=== PATIENT | female | born 1960 | race African-American/Black ===

== ENCOUNTER 2016-09-15 17:47 | Inpatient (IN) | payer OTHER ==
[~2016-09-15] VITALS: Ht 157.5 cm; Wt 85.7 kg
[~2016-09-15 17:47] MED LIST: ALBU2.5V13 NEB; ALBUTEROL; FLUT1DIS5 INH; IOHEXOL-300 100 ML BOTTLE ONE; LOSA25TA12 PO; LOSA25TA3; NEBI5TAB3 PO; POTASSIUM; SINGULAIR; SODIUM CHLORIDE 0.9% 10ML VIAL ONE; [UNRECOGNIZED DRUG - OTHER]
[2016-09-15] MEDS ORDERED: ONDANSETRON HCL 4MG/2ML VIAL IV STA (19:07)
[2016-09-15] MEDS ORDERED: MORPHINE SULFATE 4 MG/ML CPJ (NOT FOR IM USE) IV STA (19:07)
[2016-09-15] MEDS ORDERED: SODIUM CHLORIDE 0.9% 1,000 ML IV ONE (19:07)
[2016-09-15 19:31] LABS: BASOPHILS % 0.8 % (0.0-2.0); EOSINOPHILS % 5.8 % (0.0-5.0); HEMATOCRIT. 41.3 % (36.0-48.0); HEMOGLOBIN. 13.4 g/dL (12.0-16.0); LYMPHOCYTES % 30.1 % (20.0-50.0); MEAN CORPUSCULAR HEMOGLOBIN 27.8 pg (28.0-32.0); MEAN CORPUSCULAR HGB CONC 32.4 g/dL (31.0-37.0); MEAN CORPUSCULAR VOLUME 85.9 fL (81.0-99.0); MONOCYTES % 9.7 % (2.0-8.0); NEUTROPHILS % 53.6 % (40.0-76.0); PLATELET 266 x1000/uL (130-400); RED BLOOD CELL COUNT 4.81 mill/uL (4.2-5.4); RED CELL DISTRIBUTION WIDTH 12.8 % (11.6-14.6); WHITE BLOOD COUNT 7.5 x1000/uL (4.5-11.0)
[2016-09-15 19:36] LABS: PROTHROMBIN TIME 10.8 sec
[2016-09-15 19:44] LABS: ALANINE AMINOTRANSFERASE 17 IU/L (13-61); ALBUMIN 3.6 g/dL (3.4-5.0); ANION GAP 14; CALCIUM 8.7 mg/dL (8.5-10.1); CARBON DIOXIDE 27 mEq/L (21-32); CHLORIDE 106 mEq/L (98-107); INDEX HEMOLYSI 2 (1-3); INDEX ICTERIC 1 (1-4); INDEX LIPEMIC 1 (1-3); LIPASE 93 IU/L (73-393); UREA NITROGEN BLOOD 19 mg/dL (7-21); eGFR > 60 mL/min (>60)
[2016-09-15 19:46] LABS: NT PRO B-TYPE NATRIURETIC PEP 85 pg/mL (5-125); TROPONIN I 0.03 ng/mL (0.00-0.04)
[2016-09-15] MEDS ORDERED: ASPIRIN 325MG TABLET PO ONE (21:00)
[2016-09-15 21:50] LABS: CLARITY URINE CLEAR (CLEAR); COLOR URINE YELLOW (YELLOW); GLUCOSE URINE NEGATIVE (NEGATIVE); KETONES URINE NEGATIVE (NEGATIVE); LEUKOCYTE ESTERASE URINE NEGATIVE (NEGATIVE); NITRITE URINE NEGATIVE (NEGATIVE); OCCULT BLOOD URINE TRACE (NEGATIVE); PH URINE 6.5 (4.5-8.0); PROTEIN URINE NEGATIVE (NEGATIVE); SPECIFIC GRAVITY URINE 1.052 (1.005-1.030)
[2016-09-15 22:07] LABS: BACTERIA URINE 1+; RBC URINE 0-2 /hpf (0-2); SQUAMOUS EPITHELIAL CELL URINE FEW /lpf (RARE/1+); WBC URINE 0-2 /hpf (0-2)
[2016-09-15] MEDS ORDERED: ACETAMINOPHEN 325MG TABLET PO PRN (23:30)
[2016-09-15] MEDS ORDERED: CLONIDINE 0.1MG TABLET PO PRN (23:30)
[2016-09-15] MEDS ORDERED: ONDANSETRON HCL 4MG/2ML VIAL IV PRN (23:30)
[2016-09-15] MEDS ORDERED: MAGNESIUM/ALUMINUM HYDROXIDE/SIMETHICONE 30ML UDC PO PRN (23:30)
[2016-09-16] MEDS ORDERED: MOME13HF IH (00:10)
[2016-09-16 00:57] VITALS: BP 177/95
[2016-09-16] MEDS: HYDROCODONE/ACETAMINOPHEN 5/325MG TABLET PO PRN ×2 (01:17→05:36)
[2016-09-16 04:00] VITALS: BP 144/66
[2016-09-16] MEDS: IPRATROPIUM/ALBUTEROL 0.5-3(2.5)MG/3ML NEB INH PRN (04:47)
[2016-09-16 07:42] LABS: ANION GAP 12; CALCIUM 8.4 mg/dL (8.5-10.1); CARBON DIOXIDE 29 mEq/L (21-32); CHLORIDE 107 mEq/L (98-107); CREATINE KINASE 120 IU/L (26-192); CREATINE KINASE MB FRACTION 1.6 ng/mL (0.5-3.6); HDL CHOLESTEROL 44 mg/dL (40-59); INDEX HEMOLYSI 2 (1-3); INDEX ICTERIC 1 (1-4); INDEX LIPEMIC 1 (1-3); LDL CHOLESTEROL 91 mg/dL (5-100); MAGNESIUM 2.1 mg/dL (1.8-2.4); TRIGLYCERIDE 50 mg/dL (0-150); TROPONIN I 0.03 ng/mL (0.00-0.04); UREA NITROGEN BLOOD 18 mg/dL (7-21); eGFR > 60 mL/min (>60)
[2016-09-16 07:56] LABS: BASOPHILS % 1.3 % (0.0-2.0); EOSINOPHILS % 7.8 % (0.0-5.0); HEMATOCRIT. 38.8 % (36.0-48.0); HEMOGLOBIN. 12.5 g/dL (12.0-16.0); LYMPHOCYTES % 30.9 % (20.0-50.0); MEAN CORPUSCULAR HGB CONC 32.2 g/dL (31.0-37.0); MEAN CORPUSCULAR VOLUME 86.9 fL (81.0-99.0); MEAN PLATELET VOLUME 9.4 fl (7.4-10.4); MONOCYTES % 11.7 % (2.0-8.0); NEUTROPHILS % 48.3 % (40.0-76.0); PLATELET 232 x1000/uL (130-400); RED BLOOD CELL COUNT 4.46 mill/uL (4.2-5.4); RED CELL DISTRIBUTION WIDTH 12.7 % (11.6-14.6); WHITE BLOOD COUNT 6.5 x1000/uL (4.5-11.0)
[2016-09-16 08:00] VITALS: BP 153/84
[2016-09-16] MEDS: NEBIVOLOL HCL 5 MG TABLET PO SCH (09:00)
[2016-09-16] MEDS: LOSARTAN POTASSIUM 25 MG TABLET PO SCH (09:31)
[2016-09-16] MEDS: ASPIRIN 81MG EC TABLET PO SCH (09:31)
[2016-09-16] MEDS: ENOXAPARIN 40MG/0.4ML SYR SUBCUT SCH (09:31)
[2016-09-16 12:00] VITALS: BP 185/100
[2016-09-16] MEDS ORDERED: REGADENOSON 0.4 MG/5 ML IV ONE (14:15)
[2016-09-16] MEDS: MORPHINE SULFATE 2 MG/ML CPJ (NOT FOR IM USE) IV PRN ×2 (14:36→20:02)
[2016-09-16 15:12] LABS: TROPONIN I 0.03 ng/mL (0.00-0.04)
[2016-09-16 16:00] VITALS: BP 95/56
[2016-09-16] MEDS ORDERED: LACTULOSE 20G/30ML UDC PO NR (16:45)
[2016-09-16 20:00] LABS: *AMPHETAMINES SCREEN URINE NEGATIVE (NEGATIVE); *BARBITURATES SCREEN URINE NEGATIVE (NEGATIVE); *BENZODIAZEPINES SCREEN URINE NEGATIVE (NEGATIVE); *COCAINE SCREEN URINE NEGATIVE (NEGATIVE); CANNABINOID URINE SCREEN NEGATIVE (NEGATIVE); ECSTASY MDMA SCREEN URINE NEGATIVE (NEGATIVE); METHADONE URINE SCREEN NEGATIVE (NEGATIVE); OPIATES URINE SCREEN PRESUMTIVE POSITIVE (NEGATIVE); PHENCYCLIDINE URINE SCREEN NEGATIVE (NEGATIVE)
[2016-09-16 20:11] VITALS: BP 138/75
[2016-09-17] VITALS: BP 150/52
[2016-09-17] MEDS: IPRATROPIUM/ALBUTEROL 0.5-3(2.5)MG/3ML NEB INH PRN ×2 (02:49→07:45)
[2016-09-17] MEDS: MORPHINE SULFATE 2 MG/ML CPJ (NOT FOR IM USE) IV PRN (02:50)
[2016-09-17 04:00] VITALS: BP 156/59
[2016-09-17 06:13] LABS: EOSINOPHILS % 6.6 % (0.0-5.0); HEMATOCRIT. 40.1 % (36.0-48.0); HEMOGLOBIN. 12.9 g/dL (12.0-16.0); LYMPHOCYTES % 26.2 % (20.0-50.0); MEAN CORPUSCULAR HGB CONC 32.3 g/dL (31.0-37.0); MEAN CORPUSCULAR VOLUME 86.8 fL (81.0-99.0); MEAN PLATELET VOLUME 9.3 fl (7.4-10.4); MONOCYTES % 7.5 % (2.0-8.0); NEUTROPHILS % 58.7 % (40.0-76.0); PLATELET 231 x1000/uL (130-400); RED BLOOD CELL COUNT 4.62 mill/uL (4.2-5.4); RED CELL DISTRIBUTION WIDTH 12.7 % (11.6-14.6); WHITE BLOOD COUNT 6.7 x1000/uL (4.5-11.0)
[2016-09-17 07:01] LABS: ANION GAP 12; CALCIUM 8.6 mg/dL (8.5-10.1); CARBON DIOXIDE 26 mEq/L (21-32); CHLORIDE 107 mEq/L (98-107); INDEX HEMOLYSI 1 (1-3); INDEX ICTERIC 1 (1-4); INDEX LIPEMIC 1 (1-3); MAGNESIUM 2.2 mg/dL (1.8-2.4); UREA NITROGEN BLOOD 15 mg/dL (7-21)
[2016-09-17 07:09] LABS: HDL CHOLESTEROL 44 mg/dL (40-59); LDL CHOLESTEROL 93 mg/dL (5-100); NT PRO B-TYPE NATRIURETIC PEP 42 pg/mL (5-125); TRIGLYCERIDE 74 mg/dL (0-150); TROPONIN I 0.04 ng/mL (0.00-0.04); eGFR > 60 mL/min (>60)
[2016-09-17] MEDS ORDERED: REGADENOSON 0.4 MG/5 ML IV ONE (09:08)
[2016-09-17 11:13] VITALS: BP 196/105
[2016-09-17] MEDS: ASPIRIN 81MG EC TABLET PO SCH (11:16)
[2016-09-17] MEDS: NEBIVOLOL HCL 5 MG TABLET PO SCH (11:16)
[2016-09-17] MEDS: LOSARTAN POTASSIUM 25 MG TABLET PO SCH (11:17)
[2016-09-17] MEDS: ENOXAPARIN 40MG/0.4ML SYR SUBCUT SCH (11:20)
[2016-09-17] MEDS: HYDROCODONE/ACETAMINOPHEN 5/325MG TABLET PO PRN (12:14)
[2016-09-17] MEDS ORDERED: HYDRALAZINE 20MG/ML VIAL IV PRN (13:15)
[2016-09-17 14:47] VITALS: BP 158/82
[2016-09-17] MEDS ORDERED: AMLODIPINE 2.5MG TABLET PO SCH (21:00)
[2016-09-17] MEDS ORDERED: LOSARTAN POTASSIUM 25 MG TABLET PO SCH (21:00)
== END 2016-09-17 15:20 | disposition home or self-care (01) | DRG 203 ==
LOC: ER 22:06 → 6WST 22:07
PROVIDERS: ADMIT Internal Medicine; ATTEND Internal Medicine
DX: R07.89 Other chest pain (principal); I11.9 Hypertensive heart disease without heart failure; E66.9 Obesity, unspecified; J45.909 Unspecified asthma, uncomplicated; Z90.710 Acquired absence of both cervix and uterus; Z68.34 Body mass index [BMI] 34.0-34.9, adult; Z88.8 Allergy status to other drugs, medicaments and biological substances
CPT/HCPCS: 36415; 71010; 74177; 78452; 80048; 80053; 80061; 80305; 81001; 82550; 82553; 83605; 83690; 83735; 83880; 84443; 84484; 85025; 85379; 85610; 93005; 93017; 93306; 93970; 94640; 94664; 96361; 96374; 96375; 99285; A4216; A9500; J1650; J2270; J2405; J2785; J7030; J7620; Q9967

== ENCOUNTER 2021-01-26 17:58 | Emergency (ER) | payer OTHER ==
[~2021-01-26] VITALS: Ht 157.5 cm; Wt 90.0 kg
[~2021-01-26 17:58] MED LIST changes: -ALBUTEROL; +AMLO5TAB88 PO; -FLUT1DIS5 INH; -IOHEXOL-300 100 ML BOTTLE ONE; +LOSA-20 MT; -LOSA25TA12 PO; -LOSA25TA3; +MOME13HF IH; -NEBI5TAB3 PO; -POTASSIUM; -SINGULAIR; -SODIUM CHLORIDE 0.9% 10ML VIAL ONE; -[UNRECOGNIZED DRUG - OTHER]
[2021-01-26] MEDS ORDERED: HYDROCODONE/ACETAMINOPHEN 5/325MG TABLET PO STA (21:40)
[2021-01-26 22:32] LABS: BASOPHILS % 0.7 % (0.0-2.0); EOSINOPHILS % 1.7 % (0.0-5.0); HEMATOCRIT. 44.8 % (36.0-48.0); HEMOGLOBIN. 14.7 g/dL (12.0-16.0); LYMPHOCYTES % 15.2 % (20.0-50.0); MEAN CORPUSCULAR VOLUME 88.3 fL (81.0-99.0); MEAN PLATELET VOLUME 9.4 fl (7.4-10.4); MONOCYTES % 8.1 % (2.0-8.0); NEUTROPHILS % 74.3 % (40.0-76.0); PLATELET 192 x1000/uL (130-400); RED BLOOD CELL COUNT 5.07 mill/uL (4.2-5.4); RED CELL DISTRIBUTION WIDTH 12.6 % (11.6-14.6)
[2021-01-26 22:37] LABS: CHLORIDE 108 mEq/L (98-107)
[2021-01-26 22:42] LABS: CLARITY URINE CLEAR (CLEAR); COLOR URINE ORANGE (YELLOW); KETONES URINE NEGATIVE (NEGATIVE); LEUKOCYTE ESTERASE URINE NEGATIVE (NEGATIVE); NITRITE URINE POSITIVE (NEGATIVE); OCCULT BLOOD URINE NEGATIVE (NEGATIVE); PROTEIN URINE NEGATIVE (NEGATIVE); SPECIFIC GRAVITY URINE 1.005 (1.005-1.030); UROBILINOGEN URINE 0.2 E.U./dL (0.2-1.0)
[2021-01-26] MEDS ORDERED: SODIUM CHLORIDE 0.9% 500 ML IV ONE (23:00)
[2021-01-26] MEDS ORDERED: IBUP-2028 MT (23:34)
[2021-01-26] MEDS ORDERED: HYDR-4001 MT (23:34)
[2021-01-27 00:54] VITALS: BP 146/88
== END 2021-01-27 01:01 | disposition home or self-care (01) ==
LOC: ER 17:58
DX: M54.31 Sciatica, right side (principal); K59.00 Constipation, unspecified; N28.9 Disorder of kidney and ureter, unspecified; I10 Essential (primary) hypertension; K44.9 Diaphragmatic hernia without obstruction or gangrene; R35.0 Frequency of micturition
CPT/HCPCS: 36415; 74176; 80053; 81003; 85025; 99284

== ENCOUNTER 2022-01-22 03:57 | Inpatient (IN) | payer OTHER ==
[2022-01-22] VITALS (8 sets, daily range): BP systolic 134–154; BP diastolic 64–98
[~2022-01-22] VITALS: Ht 170.2 cm; Wt 92.1 kg
[~2022-01-22 03:57] MED LIST changes: +HYDR-4001 MT; +IBUP-2028 MT
[2022-01-22] MEDS ORDERED: PANTOPRAZOLE SODIUM 40 MG/VIAL IV STA (04:15)
[2022-01-22] MEDS ORDERED: SODIUM CHLORIDE 0.9% 1,000 ML IV ONE (04:30)
[2022-01-22 04:43] LABS: BASOPHILS % 1.2 % (0.0-2.0); EOSINOPHILS % 6.5 % (0.0-5.0); HEMATOCRIT. 38.4 % (36.0-48.0); HEMOGLOBIN. 12.2 g/dL (12.0-16.0); MEAN CORPUSCULAR VOLUME 88.1 fL (81.0-99.0); MEAN PLATELET VOLUME 9.7 fl (7.4-10.4); MONOCYTES % 7.7 % (2.0-8.0); NEUTROPHILS % 42.6 % (40.0-76.0); PLATELET 285 x1000/uL (130-400); RED BLOOD CELL COUNT 4.36 mill/uL (4.2-5.4); RED CELL DISTRIBUTION WIDTH 12.7 % (11.6-14.6)
[2022-01-22 04:49] LABS: CHLORIDE 111 mEq/L (98-107)
[2022-01-22 05:11] LABS: PARTIAL THROMBOPLASTIN TIME 24.2 sec (23.4-31.0); PROTHROMBIN TIME 11.2 sec (9.6-11.0)
[2022-01-22] MEDS ORDERED: IOHEXOL-300 100 ML BOTTLE ONE (07:09)
[2022-01-22] MEDS ORDERED: IPRATROPIUM/ALBUTEROL 0.5-3(2.5)MG/3ML NEB HHN PRN (10:30)
[2022-01-22] MEDS: SODIUM CHLORIDE 0.9% 1,000 ML IV SCH ×2 (10:30→21:41)
[2022-01-22] MEDS ORDERED: CLONIDINE 0.1MG TABLET PO PRN (10:30)
[2022-01-22] MEDS ORDERED: ONDANSETRON HCL 4MG/2ML INJ IV PRN (10:30)
[2022-01-22] MEDS ORDERED: DIPHENHYDRAMINE 50MG/ML VIAL IV PRN (10:30)
[2022-01-22] MEDS: LEVOFLOXACIN 500MG PREMIX 100 ML IV SCH (14:41)
[2022-01-22] MEDS: METRONIDAZOLE 500 MG PREMIX 100 ML IV SCH ×2 (14:42→21:41)
[2022-01-22] MEDS: ACETAMINOPHEN 325MG TABLET PO PRN (14:54)
[2022-01-22 16:31] LABS: HEMATOCRIT 38.3 % (36.0-48.0); HEMOGLOBIN 12.1 g/dL (12.0-16.0)
[2022-01-22] MEDS: SUCRALFATE 1 G/10 ML UDC PO SCH ×2 (17:16→21:41)
[2022-01-23] VITALS (10 sets, daily range): BP systolic 101–156; BP diastolic 53–93
[2022-01-23] MEDS: ACETAMINOPHEN 325MG TABLET PO PRN (03:38)
[2022-01-23] MEDS: METRONIDAZOLE 500 MG PREMIX 100 ML IV SCH ×3 (06:10→21:43)
[2022-01-23 06:30] LABS: CHLORIDE 110 mEq/L (98-107)
[2022-01-23 06:43] LABS: HDL CHOLESTEROL 32 mg/dL (40-59); LDL CHOLESTEROL 75 mg/dL (5-100); TOTAL IRON BINDING CAPACITY 353 ug/dL (250-450)
[2022-01-23 06:46] LABS: BASOPHILS % 1.1 % (0.0-2.0); EOSINOPHILS % 5.5 % (0.0-5.0); HEMATOCRIT. 34.1 % (36.0-48.0); HEMOGLOBIN. 11.2 g/dL (12.0-16.0); LYMPHOCYTES % 27.4 % (20.0-50.0); MEAN CORPUSCULAR HEMOGLOBIN 29.1 pg (28.0-32.0); MEAN CORPUSCULAR VOLUME 88.9 fL (81.0-99.0); MEAN PLATELET VOLUME 9.8 fl (7.4-10.4); MONOCYTES % 7.3 % (2.0-8.0); NEUTROPHILS % 58.7 % (40.0-76.0); PLATELET 227 x1000/uL (130-400); RED BLOOD CELL COUNT 3.84 mill/uL (4.2-5.4); RED CELL DISTRIBUTION WIDTH 12.9 % (11.6-14.6)
[2022-01-23 06:57] LABS: FOLIC ACID (FOLATE) SERUM 11.7 ng/mL (>5.38)
[2022-01-23] MEDS: SUCRALFATE 1 G/10 ML UDC PO SCH ×4 (08:35→21:43)
[2022-01-23] MEDS: PANTOPRAZOLE SODIUM 40 MG/VIAL IV SCH (08:35)
[2022-01-23] MEDS: SODIUM CHLORIDE 0.9% 1,000 ML IV SCH (08:38)
[2022-01-23] MEDS ORDERED: POTASSIUM CHLORIDE INJ 40 MEQ in DEXT 5% WATER 250 ML IV ONE (09:30)
[2022-01-23] MEDS: KCL 20MEQ/100ML X 2 FOR TOTAL KCL 40MEQ/200ML IV SCH ×3 (10:59→13:00)
[2022-01-23] MEDS ORDERED: ONDANSETRON HCL 4MG/2ML INJ IV PRN (11:00)
[2022-01-23] MEDS ORDERED: POTASSIUM CHLORIDE 20MEQ TABLET SR PO NR (14:00)
[2022-01-23] MEDS ORDERED: BISACODYL 5MG TABLET PO NR (14:00)
[2022-01-23] MEDS: LEVOFLOXACIN 500MG PREMIX 100 ML IV SCH (14:24)
[2022-01-23] MEDS: METOCLOPRAMIDE HCL 10MG/2ML VIAL IV SCH ×2 (15:21→18:08)
[2022-01-23] MEDS ORDERED: POTASSIUM CHLORIDE 20MEQ TABLET SR PO PRN (21:00)
[2022-01-24] VITALS: BP 147/79
[2022-01-24] MEDS: METOCLOPRAMIDE HCL 10MG/2ML VIAL IV SCH ×2 (00:40→06:10)
[2022-01-24 06:00] VITALS: BP 151/70
[2022-01-24] MEDS: METRONIDAZOLE 500 MG PREMIX 100 ML IV SCH (06:11)
[2022-01-24 08:00] VITALS: BP 156/82
[2022-01-24] MEDS: SUCRALFATE 1 G/10 ML UDC PO SCH ×2 (08:22→13:00)
[2022-01-24] MEDS: PANTOPRAZOLE SODIUM 40 MG/VIAL IV SCH (08:22)
[2022-01-24 10:00] VITALS: BP 133/69
[2022-01-24] MEDS ORDERED: METR-167 MT ×3 (11:02→12:11)
[2022-01-24] MEDS ORDERED: LEVO750T46 MT ×3 (11:02→12:11)
[2022-01-24 12:16] VITALS: BP 132/82
[2022-01-28 17:06] LABS: OVA & PARASITE EXAM Final report (.)
== END 2022-01-24 16:01 | disposition home or self-care (01) | DRG 244 ==
LOC: ER 04:17 → 5EST 05:09 → CANRESERV 06:53
PROVIDERS: ADMIT Internal Medicine; ATTEND Internal Medicine
PROC: 30233N1 Transfusion of Nonautologous Red Blood Cells into Peripheral Vein, Percutaneous Approach (ICD-10-PCS; principal; 2022-01-22)
DX: K57.93 Diverticulitis of intestine, part unspecified, without perforation or abscess with bleeding (principal); E87.2 Acidosis; K76.0 Fatty (change of) liver, not elsewhere classified; D62 Acute posthemorrhagic anemia; E87.5 Hyperkalemia; D72.829 Elevated white blood cell count, unspecified; E11.65 Type 2 diabetes mellitus with hyperglycemia; I10 Essential (primary) hypertension; K92.1 Melena; K57.91 Diverticulosis of intestine, part unspecified, without perforation or abscess with bleeding; J98.11 Atelectasis; J45.909 Unspecified asthma, uncomplicated; R77.8 Other specified abnormalities of plasma proteins; K59.09 Other constipation; I51.7 Cardiomegaly; Z90.711 Acquired absence of uterus with remaining cervical stump; Z88.8 Allergy status to other drugs, medicaments and biological substances; R51.9 Headache, unspecified; K46.9 Unspecified abdominal hernia without obstruction or gangrene
CPT/HCPCS: 36415; 71045; 74177; 80053; 80061; 82607; 82728; 82746; 82962; 83540; 83550; 83605; 83735; 84132; 84484; 85014; 85018; 85025; 85044; 86850; 86900; 86920; 87015; 87045; 87177; 87209; 87427; 87449; 87493; 89055; 93005; 93970; 99291; C9113; J1956; J2405; J2765; J3480; J3490; J7030; P9016; Q9967

== ENCOUNTER 2022-08-16 10:06 | Inpatient (IN) | payer OTHER ==
[~2022-08-16] VITALS: Ht 157.5 cm; Wt 86.8 kg
[~2022-08-16 10:06] MED LIST changes: -IBUP-2028 MT; +LEVO750T68 MT; +METR-167 MT; -MOME13HF IH; +MOME13HF11 IH
[2022-08-16 14:08] LABS: BASOPHILS % 1.5 % (0.0-2.0); HEMOGLOBIN. 13.6 g/dL (12.0-16.0); LYMPHOCYTES % 30.9 % (20.0-50.0); MEAN CORPUSCULAR HEMOGLOBIN 28.8 pg (28.0-32.0); MEAN CORPUSCULAR VOLUME 86.5 fL (81.0-99.0); MEAN PLATELET VOLUME 9.4 fl (7.4-10.4); MONOCYTES % 8.5 % (2.0-8.0); NEUTROPHILS % 56.1 % (40.0-76.0); PLATELET 280 x1000/uL (130-400); RED BLOOD CELL COUNT 4.74 mill/uL (4.2-5.4); RED CELL DISTRIBUTION WIDTH 12.4 % (11.6-14.6)
[2022-08-16 14:13] LABS: CHLORIDE 108 mEq/L (98-107)
[2022-08-16 14:14] LABS: PROTHROMBIN TIME 11.2 sec (9.6-11.0)
[2022-08-16] MEDS ORDERED: ASPIRIN 81MG TABLET PO ONE (16:00)
[2022-08-16] MEDS ORDERED: KCL 20MEQ/100ML PREMIX 100 ML IV ONE (17:00)
[2022-08-16] MEDS ORDERED: POTASSIUM CHLORIDE 20MEQ TABLET SR PO ONE (17:00)
[2022-08-16] MEDS ORDERED: MAGNESIUM 2 G PREMIX 50 ML IV ONE (17:00)
[2022-08-17 00:30] VITALS: BP 145/71
[2022-08-17] MEDS ORDERED: *PATIENT'S OWN MEDICATION STORAGE XX SCH (01:00)
[2022-08-17 04:00] VITALS: BP 129/71
[2022-08-17] MEDS ORDERED: CLONIDINE 0.1MG TABLET PO PRN ×2 (06:15→09:15)
[2022-08-17] MEDS ORDERED: NALOXONE HCL 0.4MG/ML VIAL IV PRN (06:30)
[2022-08-17 08:00] VITALS: BP 125/60
[2022-08-17] MEDS: HYDROCODONE/ACETAMINOPHEN 5/325MG TABLET PO PRN ×2 (08:56→16:59)
[2022-08-17] MEDS: ASPIRIN 81MG TABLET PO SCH (08:57)
[2022-08-17] MEDS ORDERED: HYDROCODONE/ACETAMINOPHEN 5/325MG TABLET PO PRN (09:15)
[2022-08-17] MEDS ORDERED: ONDANSETRON HCL 4MG/2ML INJ IV PRN (09:15)
[2022-08-17] MEDS ORDERED: ACETAMINOPHEN 325MG TABLET PO PRN ×2 (09:15)
[2022-08-17] MEDS ORDERED: IPRATROPIUM/ALBUTEROL 0.5-3(2.5)MG/3ML NEB HHN PRN (09:15)
[2022-08-17] MEDS ORDERED: LORAZEPAM 0.5MG TABLET PO PRN (09:15)
[2022-08-17 10:39] LABS: HEMATOCRIT 42.9 % (36.0-48.0); MEAN CORPUSCULAR HEMOGLOBIN 28.5 pg (28.0-32.0); MEAN CORPUSCULAR VOLUME 87.7 fL (81.0-99.0); PLATELET 301 x1000/uL (130-400); RED BLOOD CELL COUNT 4.89 mill/uL (4.2-5.4); RED CELL DISTRIBUTION WIDTH 12.4 % (11.6-14.6)
[2022-08-17 11:00] LABS: CHLORIDE 109 mEq/L (98-107)
[2022-08-17 11:15] LABS: CREATINE KINASE 76 IU/L (26-192)
[2022-08-17] MEDS ORDERED: REGADENOSON 0.4 MG/5 ML IV NR (11:15)
[2022-08-17] MEDS ORDERED: POTASSIUM CHLORIDE 20MEQ TABLET SR PO NR (11:15)
[2022-08-17] MEDS: LOSARTAN POTASSIUM 50 MG TABLET PO SCH ×2 (14:46→21:03)
[2022-08-17] MEDS: ENOXAPARIN 40MG/0.4ML SYR SUBCUT SCH (14:48)
[2022-08-17] MEDS: AMLODIPINE 5MG TABLET PO SCH (14:48)
[2022-08-17 20:00] VITALS: BP 115/57
[2022-08-17] MEDS: IPRATROPIUM BROMIDE (0.02%) 0.5MG/2.5ML NEB HHN PRN (21:22)
[2022-08-17] MEDS: ALBUTEROL (0.083%) 2.5MG/3ML NEB HHN PRN (21:22)
[2022-08-18] VITALS: BP 108/58
[2022-08-18 04:00] VITALS: BP 138/66
[2022-08-18 06:27] LABS: BASOPHILS % 1.2 % (0.0-2.0); EOSINOPHILS % 4.2 % (0.0-5.0); HEMOGLOBIN. 12.8 g/dL (12.0-16.0); MEAN CORPUSCULAR HEMOGLOBIN 28.3 pg (28.0-32.0); MEAN CORPUSCULAR VOLUME 88.3 fL (81.0-99.0); MEAN PLATELET VOLUME 9.7 fl (7.4-10.4); MONOCYTES % 9.4 % (2.0-8.0); NEUTROPHILS % 46.2 % (40.0-76.0); PLATELET 296 x1000/uL (130-400); RED BLOOD CELL COUNT 4.53 mill/uL (4.2-5.4); RED CELL DISTRIBUTION WIDTH 12.6 % (11.6-14.6)
[2022-08-18 08:00] VITALS: BP 145/75
[2022-08-18 08:37] LABS: CHLORIDE 111 mEq/L (98-107)
[2022-08-18 08:45] LABS: HDL CHOLESTEROL 41 mg/dL (40-59); LDL CHOLESTEROL 91 mg/dL (5-100)
[2022-08-18 12:00] VITALS: BP 141/61
[2022-08-18] MEDS: ENOXAPARIN 40MG/0.4ML SYR SUBCUT SCH (12:56)
[2022-08-18] MEDS ORDERED: REGADENOSON 0.4 MG/5 ML IV ONE (13:57)
[2022-08-18 16:00] VITALS: BP 136/78
[2022-08-18] MEDS: LOSARTAN POTASSIUM 50 MG TABLET PO SCH ×2 (17:06→20:00)
[2022-08-18] MEDS: ASPIRIN 81MG TABLET PO SCH (17:06)
[2022-08-18] MEDS: AMLODIPINE 5MG TABLET PO SCH (17:07)
[2022-08-18 20:00] VITALS: BP 140/76
[2022-08-18] MEDS: ALBUTEROL (0.083%) 2.5MG/3ML NEB HHN PRN (21:34)
[2022-08-18] MEDS: IPRATROPIUM BROMIDE (0.02%) 0.5MG/2.5ML NEB HHN PRN (21:34)
[2022-08-19] VITALS: BP 151/58
[2022-08-19 04:00] VITALS: BP 139/69
[2022-08-19] MEDS: IPRATROPIUM BROMIDE (0.02%) 0.5MG/2.5ML NEB HHN PRN (04:23)
[2022-08-19] MEDS: ALBUTEROL (0.083%) 2.5MG/3ML NEB HHN PRN (04:23)
[2022-08-19 08:00] VITALS: BP 130/60
[2022-08-19] MEDS: ASPIRIN 81MG TABLET PO SCH (08:41)
[2022-08-19] MEDS: AMLODIPINE 5MG TABLET PO SCH (08:42)
[2022-08-19] MEDS: LOSARTAN POTASSIUM 50 MG TABLET PO SCH (08:42)
[2022-08-19 10:52] VITALS: BP 130/60
== END 2022-08-19 11:35 | disposition home or self-care (01) | DRG 203 ==
LOC: ER 10:06 → 7EST 19:10 → EDBEDREQTM 19:15 → EDBEDREQ 19:15 → ENRESERV 23:49
PROVIDERS: ADMIT Internal Medicine; ATTEND Internal Medicine
DX: M94.0 Chondrocostal junction syndrome [Tietze] (principal); I50.30 Unspecified diastolic (congestive) heart failure; I11.0 Hypertensive heart disease with heart failure; E87.6 Hypokalemia; J45.909 Unspecified asthma, uncomplicated; K21.9 Gastro-esophageal reflux disease without esophagitis; J98.11 Atelectasis; Z90.710 Acquired absence of both cervix and uterus; Z90.711 Acquired absence of uterus with remaining cervical stump
CPT/HCPCS: 36415; 71045; 78452; 80048; 80053; 80061; 82550; 82553; 83735; 83880; 84484; 85025; 85027; 85379; 93005; 93017; 93306; 94640; 99285; A9500; J1650; J2785; J3475; J3480